=== PATIENT | female | born 1985 | race Two or more races ===

== ENCOUNTER 2019-11-23 23:03 | Emergency (ER) | payer MEDICAID, OTHER ==
[2019-11-23] MEDS ORDERED: Gabapentin 300 MG Cap PO ONE (23:22)
[2019-11-23] MEDS ORDERED: cefTRIAXone 1 GM Vial IM ONE (23:22)
--- NOTE | 2019-11-23 23:27 | EDM.PDOC ---
ED HPI GENERAL MEDICAL PROBLEM - General Chief Complaint: Skin Complaint Stated Complaint: possible bug bite Time Seen by Provider: 11/23/19 23:15 Source of Information: Reports: Patient History Limitations: Reports: No Limitations. Denies: Language Barrier - History of Present Illness INITIAL COMMENTS - FREE TEXT/NARRATIVE: noted rash on the right side of her neck for the past 3 days . Painful on the skin where rash is. Vesicular lesions that do not cross the midline pt also has been noted to have temp of 100.5 no obvious contacts pt has noted increased pain in the area of the rash, not able to sleep because of the rash Pt has HIV Onset: Gradual Onset Date: 11/20/19 Location: Reports: Neck (right side of neck ) Quality: Reports: Ache, Burning, Dull, Pressure Severity: Severe Improves with: Reports: Cold Therapy Worsens with: Reports: Heat Therapy Context: Reports: Sick Contact Associated Symptoms: Reports: Confusion, Headaches - Related Data Allergies Allergy/AdvReac Type Severity Reaction Status Date / Time No Known Allergies Allergy Verified 11/23/19 23:20 Home Meds: Home Meds Acyclovir [Zovirax 5% Oint] 1 applic TOP DAILY #30 oint...g. 11/23/19 [Rx] Gabapentin [Neurontin] 300 mg PO BID #60 cap 11/23/19 [Rx] Sulfamethoxazole/Trimethoprim [Bactrim Ds Tablet] 1 each PO BID #30 tablet 11/22 [Rx] valACYclovir [Valtrex] 1,000 mg PO TID #30 tab 11/23/19 [Rx] ED ROS GENERAL - Review of Systems Review Of Systems: See Below Constitutional: Reports: Fever, Chills, Malaise, Weakness, Fatigue HEENT: Reports: No Symptoms Respiratory: Reports: No Symptoms Cardiovascular: Reports: No Symptoms Endocrine: Reports: No Symptoms ED EXAM, SKIN/RASH Exam: See Below Exam Limited By: No Limitations General Appearance: Alert, WD/WN, No Apparent Distress Eye Exam: Bilateral Eye: EOMI Ears: Normal External Exam Nose: Normal Inspection Throat/Mouth: Normal Inspection, Normal Oropharynx Head: Normocephalic. No: Facial Tenderness, Sinus Tenderness Neck: Supple, Full Range of Motion, Tender Lateral (on the right side) Respiratory/Chest: Lungs Clear, Normal Breath Sounds, Chest Non-Tender, Crackles Cardiovascular: Regular Rate, Rhythm Back Exam: Normal Inspection Psychiatric: Normal Affect Skin: Rash, Other Location, Skin: Neck (lateral right neck : vesicular lesions , along the dermatone on the neck) Course - Re-Assessments/Exams Free Text/Narrative Re-Assessment/Exam: 11/23/19 23:39 pt given dose of rocephin , bactrim and neurontin tolerated well more information on shingles given to patient Departure - Departure Time of Disposition: 11:50 Disposition: Home, Self-Care 01 Clinical Impression: Shingles (herpes zoster) polyneuropathy, Post herpetic neuralgia - Discharge Information *PRESCRIPTION DRUG MONITORING PROGRAM REVIEWED*: Not Applicable *COPY OF PRESCRIPTION DRUG MONITORING REPORT IN PATIENT SABINE: Not Applicable Instructions: Shingles, [id number]-lb-[id number] Referrals: Puneet Cee MD [Primary Care Provider] - Forms: ED Department Discharge
[2019-11-23] MEDS ORDERED: Acyclovir 400 MG Tab PO ONE (23:40)
[2019-11-24 00:14] VITALS: BP 125/79; PULSE 110
== END 2019-11-24 | disposition home or self-care (01) ==
LOC: FB.ED 23:03
DX: B02.23 Postherpetic polyneuropathy (principal); B02.29 Other postherpetic nervous system involvement; Z79.899 Other long term (current) drug therapy
CPT/HCPCS: 96372; 99283; A9270; J0696

== ENCOUNTER 2022-08-20 21:11 | Emergency (ER) | payer SELFPAY ==
[2022-08-20] MEDS ORDERED: Alum Hydroxide/Mag Hydroxide 15 ML, Lidocaine 2% 15 ML PO ONE ×2 (21:35)
[2022-08-20] MEDS ORDERED: Pantoprazole 40 MG Tab.CR PO STA (22:14)
[2022-08-20 22:33] VITALS: BP 142/87; PULSE 92
== END 2022-08-20 22:25 | disposition home or self-care (01) ==
LOC: FB.ED 21:11
DX: K21.9 Gastro-esophageal reflux disease without esophagitis (principal)
CPT/HCPCS: 93005; 93010; 99283; A9270-GY

== ENCOUNTER 2025-04-23 11:25 | Observation (INO) | payer MEDICAID ==
[2025-04-23] MEDS ORDERED: Ondansetron 4 MG Tab.DIS PO PRN (13:04)
[2025-04-23] MEDS ORDERED: Sodium Chloride 0.9% 10 ML Syringe FLUSH PRN (13:04)
[2025-04-23] MEDS ORDERED: RIFABUTIN 150 MG PO SCH (13:45)
[2025-04-23] MEDS ORDERED: ETHAMBUTOL PO SCH (14:00)
[2025-04-23 15:13] VITALS: BP 100/70; PULSE 92
[2025-04-23] MEDS ORDERED: DOLUTEGRAVIR PO SCH (22:00)
[2025-04-23] MEDS ORDERED: ABACAVIR PO SCH (22:00)
[2025-04-23] MEDS ORDERED: [UNRECOGNIZED DRUG - OTHER] PO SCH (22:00)
[2025-04-23] MEDS ORDERED: LAMIVUDI PO SCH (22:00)
== END 2025-04-23 15:15 ==
LOC: FB.MS 12:22
PROVIDERS: ADMIT Family Medicine; ATTEND Family Medicine
DX: D64.9 Anemia, unspecified (principal); E86.0 Dehydration; A02.0 Salmonella enteritis; N18.30 Chronic kidney disease, stage 3 unspecified; Z21 Asymptomatic human immunodeficiency virus [HIV] infection status; Z22.7 Latent tuberculosis; Z79.899 Other long term (current) drug therapy
CPT/HCPCS: 36415; 86850; 86900; 86901; 86920; 86922; 99223